=== PATIENT | male | born 1965 | race Caucasian/White ===

== ENCOUNTER → 2023-11-10 07:52 | Outpatient (CLI) | payer OTHER, SELFPAY ==
[2023-11-10 09:06] LABS: Add Manual Diff / Slide Review NO; Basophils Absolute Auto 0 /uL (0-100); Basophils Percent Auto 0.6 % (0-2); Eosinophils Absolute Auto 200 /uL (0-450); Eosinophils Percent Auto 3.8 % (2-4); Hematocrit 42.5 % (41-53); Hemoglobin 14.5 g/dL (13.5-17.5); Lymphocytes Absolute Auto 2400 /uL (1100-4500); Lymphocytes Percent Auto 49.2 % (25-40); Mean Corpuscular HGB Conc 34.1 % (30-36); Mean Corpuscular Hemoglobin 31.2 PG (26-34); Mean Corpuscular Volume 91.5 fL (80-100); Monocytes Absolute Auto 400 /uL (0-900); Monocytes Percent Auto 7.9 % (3-14); Neutrophils Absolute Auto 1900 /uL (1500-7000); Neutrophils Percent Auto 38.5 % (50-75); Platelet Count 191 X10^3/uL (150-400); Red Blood Cell Count 4.64 X10^6/uL (4.5-5.9); Red Cell Distribution Width 12.9 % (11.6-14.8); White Blood Cell Count 4.8 X10^3/uL (4.5-11.0)
[2023-11-10 09:30] LABS: Alanine Aminotransferase 24 IU/L (<50); Albumin 4.3 g/dL (3.5-5.0); Albumin Globulin Ratio 1.9 (1.0-2.8); Alkaline Phosphatase 51 U/L (38-126); Aspartate Aminotransferase 31 IU/L (17-59); BUN Creatinine Ratio 26.3 (6-22); Bilirubin Total 0.7 mg/dL (0.2-1.3); Blood Urea Nitrogen 26 mg/dL (9-20); Calcium 9.1 mg/dL (8.4-10.2); Carbon Dioxide 27 mmol/L (22-32); Chloride 108 mmol/L (98-107); Cholesterol 260 mg/dL (140-199); Estimated Glomerular Filt Rate > 60 mL/min (>60); Globulin 2.3 g/dL (1.7-4.1); Glucose 90 mg/dL (80-110); HDL Cholesterol 69 mg/dL (40-60); HEMOLYSIS < 15 (0-50); LDL Cholesterol Calculated 172 mg/dL (<100); Potassium 4.3 mmol/L (3.4-5.1); Sodium 140 mmol/L (137-145); Total Protein 6.6 g/dL (6.3-8.2); Triglycerides 94 mg/dL (35-150)
== END ==
LOC: LAB 07:52
PROVIDERS: PCP Family Medicine; Referring Provider Family Medicine; Visit Provider Family Medicine
DX: Z00.00 Encounter for general adult medical examination without abnormal findings (principal)
CPT/HCPCS: 36415; 80053; 80061; 84153; 85025

== ENCOUNTER 2024-03-19 10:02 | Day surgery (SDC) | payer OTHER, SELFPAY ==
[2024-03-19 10:35] VITALS: BP 136/84; PULSE 95; RESP 16; TEMP 36.4; O2SAT 95
--- NOTE | 2024-03-19 11:10 | PM.HP.1 ---
History of Present Illness History of Present Illness Date Patient Seen: 03/19/24 Time Patient Seen: 11:18 Chief complaint: SDC Narrative: Colon cancer screening, no family history for colon cancer, No symptoms PFSH Medical History Adult wellness visit Preventative health care Hyperlipidemia Right knee pain Shoulder pain Fractures Neutropenia (~2013) Essential thrombocytosis (~1980) Surgical History Anesthesia Compartment syndrome (~1980) History of knee surgery (~1980) Family History Mother Hyperlipidemia Grandfather Cancer Grandmother Cancer Social History Smoking Status: Never smoker alcohol intake: current Meds Home Medications and Allergies Home Medications Medication Instructions Recorded Confirmed Type No Known Home Medications 03/19/24 03/19/24 History Allergies Allergy/AdvReac Type Severity Reaction Status Date / Time No Known Drug Allergies Allergy Verified 03/19/24 10:26 Review of Systems Review of Systems ROS: Yes All systems reviewed with the patient and are negative except as otherwise documented Exam Vital Signs (past 8 hours): - 03/19/24 10:35 Temperature 97.6 F Pulse Rate 95 H Respiratory Rate 16 Blood Pressure 136/84 Pulse Oximetry 95 Oxygen Delivery Method Room Air Oxygen Delivery Method Room Air Const General: cooperative, healthy appearing and comfortable Nutritional Appearance: average body habitus HENMT Head: normocephalic and atraumatic Eyes General: appearance normal, both eyes and all related structures Neck Neck: trachea midline and No JVD Resp Effort & Inspection: normal respiratory effort and able to speak in complete sentences Cardio Rate: regular rate Rhythm: regular rhythm GI Inspection: non-distended Palpation: soft Skin General: turgor normal and atrophy Neuro General: patient alert, patient awake and patient oriented x3 Cranial Nerves: tongue midline Psych Appearance: grossly normal Judgment: judgment good Assessment & Plan Assessment & Plan narrative: First colonoscopy for colon cancer screening. Anesthesia will assist. Time-Based Coding :: [TOTAL MINUTES] spent with patient and on the chart (including review of chart, obtaining history, exam, reviewing outside data, placing orders, documenting exam and treatment plan, and counseling patient) on [DATE].
--- NOTE | 2024-03-19 11:41 | PM.OP.COLON ---
Operative Date/Time/Diagnoses Date of procedure: 03/19/24 Time of procedure: 11:42 Pre-op diagnosis: Colon cancer screening Post-op diagnosis: same Procedure & Clinicians Study performed: Colonoscopy with anesthesia Same procedure as scheduled: Yes Indications: Colon cancer screening Surgeon: Lurdes Callahan Procedure Notes Procedure in detail: Preop diagnosis: Colon cancer screening Postop diagnosis: Same Operative procedure: Colonoscopy with anesthesia Surgeon: Marce Callahan MD Findings: Normal colonoscopy. No polyps, no diverticulosis. Procedure: Patient placed in a lateral position. Rectal exam performed showing normal tone no masses. Colonoscope inserted into the rectum and advanced to ileocecal valve with minimal difficulty. Insufflation extraction of the scope and the above findings. Retroflex was included in the rectum. Impression: No polyps, no diverticulosis. Plan: Repeat colonoscopy in 10 years unless otherwise indicated by change in clinical condition Specimen(s): none sent Complications: none Post-procedure Recommendations: Colonoscopy in 10 years Follow up: as needed Disposition: PACU
[2024-03-19 11:45] VITALS: BP 98/63; PULSE 75; RESP 18; TEMP 36.4; O2SAT 96
[2024-03-19 11:50] VITALS: BP 99/67; PULSE 75; RESP 16; TEMP 36.4; O2SAT 97
[2024-03-19 11:55] VITALS: BP 101/70; PULSE 76; RESP 15; TEMP 36.3; O2SAT 98
[2024-03-19 12:07] VITALS: BP 100/69; PULSE 75; RESP 16; TEMP 36.4; O2SAT 98
== END 2024-03-19 12:08 | disposition home or self-care (01) ==
PROVIDERS: PCP Family Medicine; Referring Provider Surgery; Visit Provider Surgery
PROC: 0DJD8ZZ Inspection of Lower Intestinal Tract, Via Natural or Artificial Opening Endoscopic (ICD-10-PCS; CPT 45378; principal; 2024-03-19 11:15)
DX: Z12.11 Encounter for screening for malignant neoplasm of colon (principal)
CPT/HCPCS: 45378; J2704

== ENCOUNTER → 2025-04-17 15:43 | Outpatient (CLI) | payer OTHER, SELFPAY ==
--- NOTE | 2025-04-17 15:44 | DI.RAD.S_ITS ---
PROCEDURE: XR KNEE LT 3V INDICATIONS: Progressive bilateral knee pain right greater than left TECHNIQUE: 3 views of the knee were acquired. COMPARISON: None. FINDINGS: Moderate degenerative change noted at the patellofemoral compartment with joint space narrowing and slight lateral subluxation. No fracture or dislocation. No effusion. IMPRESSION: Moderate patellofemoral osteoarthritis. Dictated by: Sly Humphries M.D. on 04/18/2025 at 13:57 Approved by: Sly Humphries M.D. on 04/18/2025 at 13:59
--- NOTE | 2025-04-17 15:44 | DI.RAD.S_ITS ---
PROCEDURE: XR KNEE RT 3V INDICATIONS: Progressive bilateral knee pain right greater than left TECHNIQUE: 3 views of the knee were acquired. COMPARISON: None. FINDINGS: Moderate osteoarthritis, most pronounced in the lateral tibiofemoral compartment. No effusion. No fracture or dislocation. Screw in the proximal tibial metaphysis. IMPRESSION: Osteoarthritis. Dictated by: Sly Humphries M.D. on 04/18/2025 at 13:56 Approved by: Sly Humphries M.D. on 04/18/2025 at 13:56
== END ==
PROVIDERS: PCP Family Medicine; Referring Provider Family Medicine; Visit Provider Family Medicine
DX: Z00.00 Encounter for general adult medical examination without abnormal findings (principal); M17.0 Bilateral primary osteoarthritis of knee; M22.40 Chondromalacia patellae, unspecified knee; M25.561 Pain in right knee; M25.562 Pain in left knee
CPT/HCPCS: 73562

== ENCOUNTER → 2025-05-22 08:52 | Outpatient (CLI) | payer OTHER, SELFPAY ==
[2025-05-22 09:23] LABS: Add Manual Diff / Slide Review NO; Hematocrit 44.2 % (41-53); Hemoglobin 15.1 g/dL (13.5-17.5); Lymphocytes Absolute Auto 2600 /uL (1100-4500); Mean Corpuscular HGB Conc 34.3 % (30-36); Mean Corpuscular Hemoglobin 31.0 PG (26-34); Mean Corpuscular Volume 90.5 fL (80-100); Platelet Count 182 X10^3/uL (150-400)
[2025-05-22 09:37] LABS: Alanine Aminotransferase 30 IU/L (<50); Albumin 4.7 g/dL (3.5-5.0); Albumin Globulin Ratio 1.8 (1.0-2.8); Alkaline Phosphatase 57 U/L (38-126); Blood Urea Nitrogen 25 mg/dL (9-20); Calcium 9.6 mg/dL (8.4-10.2); Carbon Dioxide 25 mmol/L (22-32); Chloride 105 mmol/L (98-107); Cholesterol 193 mg/dL (140-199); Estimated Glomerular Filt Rate > 60 mL/min (>60); Globulin 2.6 g/dL (1.7-4.1); Glucose 92 mg/dL (70-99); HDL Cholesterol 80 mg/dL (40-60); HEMOLYSIS 16 (0-50); Potassium 4.3 mmol/L (3.4-5.1); Sodium 139 mmol/L (137-145); Total Protein 7.3 g/dL (6.3-8.2); Triglycerides 139 mg/dL (35-150)
[2025-05-22 10:06] LABS: Prostate Specific Antigen 0.783 ng/mL (0.10-4.00)
[2025-05-22 10:18] LABS: TSH w/ Reflex to FT4 2.19 uIU/mL (0.47-4.68)
== END ==
PROVIDERS: PCP Family Medicine; Referring Provider Family Medicine; Visit Provider Family Medicine
DX: Z00.00 Encounter for general adult medical examination without abnormal findings (principal); E78.00 Pure hypercholesterolemia, unspecified
CPT/HCPCS: 36415; 80053; 80061; 84153; 84443; 85025